=== PATIENT | male | born 1945 | race Caucasian/White ===

== ENCOUNTER 2018-11-01 15:55 | Observation (INO) | payer MEDICARE, BC ==
--- NOTE | 2018-11-01 16:28 | ED ---
Palpitations / Dysrhythmia - HPI Summary HPI Summary: A 73 y/o M presents to ED with increased HR onset SQL DBA. Pt was at cardio-rehab at [facility], and had been on the treadmill for about 10 minutes. He went to another machine, and the provider monitoring him felt his BP was fine but his HR was not coming down as it should. They contacted Dr. Edwards , cardio, office who recommended that he go to the ED. At bedside, the pt states feeling completely fine. He will be three weeks from CABG tomorrow, which was done at [facility]. He is on Lisinopril, Metoprolol, and 325mg aspirin. Denies dizziness, lightheadedness. Non-smoker. No recent changes in caffeine intake. - History of Current Complaint Chief Complaint: EDDysrhythmPalp Time Seen by Provider: 11/01/18 16:18 Hx Obtained From: Patient, Family/Account Auditor - Onset/Duration: Sudden Onset, Still Present Timing: Constant Severity Initially: Moderate Severity Currently: Moderate Character: Fast - HR Aggravating: Exertion Associated Signs & Symptoms: Negative - Allergy/Home Medications Allergies/Adverse Reactions: Allergies Allergy/AdvReac Type Severity Reaction Status Date / Time No Known Allergies Allergy Verified 03/13/13 07:14 Home Medications: Home Medications Aspirin TAB* [Aspirin 325 MG TAB*] 325 mg PO DAILY 11/01/18 [History Confirmed 11/01/18] Atorvastatin* [Lipitor*] 20 mg PO DAILY 11/01/18 [History Confirmed 11/01/18] Cholecalciferol CAP/TAB(NF) [Vitamin D3 CAP/TAB (NF)] 2,000 unit PO DAILY [History Confirmed 11/01/18] Glucosamine/MSM/Chondroitin A [Glucosamine Chondroitin &] 1 tab PO BID 11/01/18 [History Confirmed 11/01/18] Insulin NPH Hum/Reg Insulin Hm [Novolin 70-30 Flexpen] 26 - 46 units SUBCUT ACHS 11/01/18 [History Confirmed 11/01/18] Lisinopril TAB* [Prinivil TAB*] 5 mg PO DAILY 11/01/18 [History Confirmed ] Metoprolol Tartrate TAB* [Lopressor TAB*] 12.5 mg PO BID 11/01/18 [History Confirmed 11/01/18] [place]-3 Fatty Acids (Nf) [Fish Oil (NF)] 1,000 mg PO DAILY 11/01/18 [History Confirmed 11/01/18] PMH/Surg Hx/FS Hx/Imm Hx Previously Healthy: No Endocrine/Hematology History: Reports: Hx Diabetes - TYPE 2 Cardiovascular History: Denies: Other Cardiovascular Problems/Disorders History: Denies: Other Problems/Disorders Musculoskeletal History: Reports: Hx Arthritis - HIP Denies: Other Musculoskeletal History Sensory History: Reports: Hx Cataracts, Hx Contacts or Glasses - GLASSES Denies: Hx Hearing Aid Opthamlomology History: Reports: Hx Cataracts, Hx Contacts or Glasses - GLASSES Neurological History: Denies: Other Neuro Impairments/Disorders - Surgical History Surgery Procedure, Year, and Place: 02/2010, RIGHT HIP REPLACEMENT, [place]. 1995, LEFT KNEE ARTHROSCOPY, [facility]. DEVIATED SEPTUM , , [facility] Hx Anesthesia Reactions: No Infectious Disease History: No Infectious Disease History: Denies: Traveled Outside the [place] in Last 30 Days - Family History Family History: neg: anaesthesia reaction. - Social History Occupation: Employed Full-time Lives: With Family Substance Use Type: Reports: None Review of Systems Negative: Fever, Chills Negative: Erythema Negative: Sore Throat Positive: Palpitations - rapid HR. Negative: Chest Pain Negative: Shortness Of Breath, Cough Negative: Abdominal Pain, Vomiting, Nausea Negative: dysuria, hematuria Negative: Myalgia, Edema Negative: Rash Neurological: Other - neg: dizziness, lightheadedness All Other Systems Reviewed And Are Negative: Yes Physical Exam - Summary Physical Exam Summary: Constitutional: Well-developed, Well-nourished, Alert. (-) Distressed Skin: Warm, Dry HENT: Normocephalic; Atraumatic Eyes: Conjunctiva normal Neck: Musculoskeletal ROM normal neck. (-) JVD, (-) Stridor, (-) Tracheal deviation Cardio: Rapid irregularly irregular heart beat; Heart sounds normal; Intact distal pulses; The pedal pulses are 2+ and symmetric. Radial pulses are 2+ and symmetric. (-) Murmur Pulmonary/Chest wall: Effort normal. (-) Respiratory distress, (-) Wheezes, (-) Rales Abd: Soft, (-) epigastric tenderness, (-) Distension, (-) Guarding, (-) Rebound Musculoskeletal: (-) Edema Lymph: (-) Cervical adenopathy Neuro: Alert, Oriented x3 Psych: Mood and affect Normal Triage Information Reviewed: Yes Vital Signs On Initial Exam: Initial Vitals Temp Pulse Resp BP Pulse Ox 98.4 F 130 18 114/96 97 11/01/18 16:05 11/01/18 16:05 11/01/18 16:05 11/01/18 16:05 11/01/18 16:05 Vital Signs Reviewed: Yes Diagnostics - Vital Signs Vital Signs Temp Pulse Resp BP Pulse Ox 11/01/18 16:05 98.4 F 130 18 114/96 97 - Laboratory Result Diagrams: 11/01/18 16:30 11/01/18 16:30 Lab Statement: Any lab studies that have been ordered have been reviewed, and results considered in the medical decision making process. - Radiology CXR Radiology Interpretation Completed By: Radiologist Summary of Radiographic Findings: IMPRESSION: Atelectasis versus infiltrate at the left lung base. ED provider has reviewed this report. - EKG 1634 EKG Rhythm: Atrial Fibrillation - at 155 bpm Summary of EKG Findings: No STEMI. 1651 EKG Rhythm: Atrial Fibrillation - with RVR at 116 bpm Summary of EKG Findings: No STEMI Course/Dx - Course Course Of Treatment: Pt is a 73 y/o M presenting with increased HR onset SQL DBA. Pt was at cardio-rehab, and had been on the treadmill for about 10 minutes. The provider monitoring him felt his BP was fine but his HR was not coming down as it should. They contacted Dr. Edwards, cardiology, who recommended that he go to the ED. At bedside, the pt states feeling completely fine. He will be three weeks from CABG tomorrow, which was done at [facility]. He is on Lisinopril, Metoprolol, and 325mg aspirin. Denies dizziness, lightheadedness. Non-smoker. No recent changes in caffeine intake. Critical lab value: troponin 0.04. Consulted with Dr. Carmona, hospitalist, who will admit patient. - Diagnoses Provider Diagnoses: Atrial fibrillation with RVR - Physician Notifications Discussed Care Of Patient With: Ashley Carmona - hospitalist Time Discussed With Above Provider: 17:55 Instructed by Provider To: Admit As Inpatient - Critical Care Time Critical Care Time: 30-74 min - 35 mins CC time Discharge - Sign-Out/Discharge Documenting (check all that apply): Patient Departure - ADMIT Patient Received Moderate/Deep Sedation with Procedure: No - Discharge Plan Condition: Stable Disposition: ADMITTED TO [facility] Referrals: Mirza Purcell MD [Primary Care Provider] - - Attestation Statements Document Initiated by Scribe: Yes Documenting Scribe: Brianna Elliott Provider For Whom Scribe is Documenting (Include Credential): Dr. Dipak Forte MD Scribe Attestation: Violetta, Brianna Elliott, scribed for Dr. Dipak Forte MD on 11/01/18 at 1839. Status of Scribe Document: Ready
[2018-11-01] MEDS: Diltiazem IV* 5 MG/ML 5 ML VIAL (for loading dose/IV Push) (25 MG) IV SLOW PU ONE ×2 (16:46→16:54)
[2018-11-01 16:50] LABS: ABS Basophils 0.1 10^3/ul (0-0.2); ABS Eosinophils 0.4 10^3/ul (0-0.6); ABS Lymphocytes 1.8 10^3/ul (1.0-4.8); ABS Monocytes 0.6 10^3/ul (0-0.8); ABS Neutrophils 4.2 10^3/ul (1.5-7.7); ABS Nucleated RBC 0 10^3/ul; Eosinophil % 5.9 %; Hematocrit 36 % (42-52); Hemoglobin 11.7 g/dl (14.0-18.0); Mean Corpuscular HGB Conc 33 g/dl (31-36); Mean Corpuscular Hemoglobin 30 pg (27-31); Mean Corpuscular Volume 92 fL (80-94); Mean Platelet Volume 7.3 fL (7.4-10.4); Nucleated Red Blood Cells % 0.1; Platelet Count 289 10^3/ul (150-450); Red Blood Count 3.88 10^6/ul (4.00-5.40); Red Cell Distribution Width 14 % (10.5-15); White Blood Count 7.2 10^3/ul (3.5-10.8)
[2018-11-01 17:06] LABS: ALT 39 U/L (7-52); Albumin 3.8 g/dL (3.2-5.2); Alkaline Phosphatase 101 U/L (34-104); BUN/Creatinine Ratio 21.3 (8-20); Blood Urea Nitrogen 16 mg/dL (6-24); CO2 Carbon Dioxide 27 mmol/L (22-32); Calcium 9.2 mg/dL (8.6-10.3); Chloride 104 mmol/L (101-111); EGFR African American 123.2 (>60); EGFR Non-African American 101.8 (>60); Globulin 3.9 g/dL (2-4); Glucose 74 mg/dL (70-100); Sodium 136 mmol/L (135-145); Total Protein 7.7 g/dL (6.4-8.9)
[2018-11-01 17:10] LABS: Troponin I 0.04 ng/mL (<0.04)
[2018-11-01] MEDS ORDERED: Diltiazem TAB* 30 MG PO ONE (17:18)
[2018-11-01] MEDS ORDERED: Diltiazem TAB* 30 MG ONE (17:21)
[2018-11-01 17:44] LABS: Anion Gap 5 mmol/L (2-11)
[2018-11-01] MEDS ORDERED: Diltiazem IV VIAL* 125 MG in NS 0.9% 100 ML* 100 ML IVPB ONE (17:56)
[2018-11-01] MEDS ORDERED: NS 0.9% 100 ML* 100 ML ONE (18:15)
[2018-11-01] MEDS ORDERED: Acetaminophen TAB* 325 MG PO PRN (19:42)
[2018-11-01 19:52] LABS: Magnesium 2.1 mg/dL (1.9-2.7); Potassium Redraw 4.7 mmol/L (3.5-5.0)
[2018-11-01] MEDS ORDERED: Dextrose 50% Syringe 50 ML* 25 GM/50 ML SYRINGE IV PUSH PRN (20:18)
[2018-11-01] MEDS ORDERED: Metoprolol Tartrate TAB* 25 MG ONE (20:25)
[2018-11-01] MEDS: Metoprolol Tartrate TAB* 25 MG PO SCH (20:30)
[2018-11-01] MEDS ORDERED: Metoprolol Tartrate TAB* 25 MG PO SCH (21:00)
[2018-11-01] MEDS: Apixaban* 5 MG TAB PO SCH (22:40)
[2018-11-01] MEDS: Insulin LISPRO* 1 UNITS UNIT SUBCUT SCH (23:35)
--- NOTE | 2018-11-02 01:12 | HP ---
CC: Dr. Edwards; Dr. Purcell * HISTORY AND PHYSICAL: DATE OF ADMISSION: 11/01/18 PROVIDER: Isael Preciado NP PRIMARY CARE PROVIDER: Dr. Purcell. ATTENDING PHYSICIAN WHILE IN THE HOSPITAL: Dr. Taylor Armendariz * (dictated by Isael Preciado NP). CHIEF COMPLAINT: Tachycardia. HISTORY OF PRESENT ILLNESS: Mr. Gordon is a 73-year-old male with a past medical history significant for diabetes, recent aortic valve replacement and aortic aneurysm repair, who was at cardiac rehab today doing his exercise when staff noticed that he had a high heart rate, and after rest, the heart rate did not come down, so they sent him to the emergency room for further evaluation. The patient denied any chest pain; he denied any feelings of palpitation; he denied any nausea, vomiting, or diarrhea. Denies any recent illness. Denies any cough or hemoptysis. He did report that he was mildly short of breath with exercise. Denied any dizziness, dysphagia, arthralgias, myalgias. Denied any rashes. He does have a healing surgical incision to his sternum. Denies any psychosis or anxiety. While in the emergency room, the patient was found to be in rapid atrial fibrillation at a rate of 130 to 150. He was given Cardizem IV in the emergency room x2 doses and then started on a Cardizem drip at 5 mg. He also received Cardizem 90 mg p.o. Subsequently, the patient converted to sinus rhythm on the monitor and repeat EKG was done, which confirmed sinus rhythm. The patient had routine lab work drawn which showed a mild elevation in his troponin at 0.04 x2. His magnesium was 2.1, potassium was 4.7. His hemoglobin was 11.7, hematocrit was 36. The patient's white count was 7.2. Given the new onset of atrial fibrillation, we were asked to see and evaluate for admission. PAST MEDICAL HISTORY: Significant for: 1. Diabetes. 2. Aortic valve replacement on 10/12/18. 3. Aortic aneurysm repair on 10/12/18. PAST SURGICAL HISTORY: 1. Right hip replacement. 2. Aortic valve replacement, bovine cow valve on 10/12/18 at [place], [place]. 3. Aortic aneurysm repair, 10/12/18, in [place], [place]. 4. Cataract surgery. 5. Deviated septum repair. HOME MEDICATIONS: 1. Aspirin 325 mg p.o. daily. 2. Atorvastatin 20 mg p.o. daily. 3. Vitamin D3 2000 units p.o. daily. 4. Glucosamine 1 tab p.o. b.i.d. 5. 70/30, 26 to 46 units subcu a.c. and h.s. 6. Metoprolol 12.5 mg p.o. b.i.d. 7. [place]-3 fatty acid 1000 mg p.o. daily. 8. Lisinopril 5 mg p.o. daily. ALLERGIES: No known drug allergies. FAMILY HISTORY: Grandmother with a history of an IA. Grandmother with a history of diabetes. Mother with a history of skin cancer. SOCIAL HISTORY: Denies any tobacco, alcohol, or illicit drug use. Semiretired. He currently works at the [employer]. He is . Surrogate decision maker in the event he is unable to make his own decisions is his . He is a full code. REVIEW OF SYSTEMS: There was no documented fever. No unintended weight loss, chest pain, or edema. Denies any cough, hemoptysis. He did report some mild shortness of breath with exercise. Denies any nausea, vomiting, diarrhea, abdominal pain, hematuria, dysuria, focal weakness, sensory loss, dysphagia, arthralgias, myalgias, rashes. He does have a healing surgical incision to his sternum that is well approximated. No pain, drainage, or redness. No psychosis or anxiety. PHYSICAL EXAMINATION GENERAL: At this time, Mr. Gordon is a 73-year-old male. He is resting comfortably on the stretcher in the emergency room. He is well nourished, well developed, in no acute distress. HEENT: Head is atraumatic, normocephalic. Eyes: EOMs are intact. Sclerae anicteric and not pale. Oral mucosa appeared to be moist. NECK: Supple. LUNGS: Clear to auscultation bilaterally. No wheezes, rales, or rhonchi. CARDIAC: S1, S2. Irregular rate and rhythm. No murmurs, rubs, or gallops. Midsternal chest incision is well approximated, healing. There is no redness or drainage. There are some small scabbed areas. ABDOMEN: Soft and nontender. Bowel sounds are present x4. EXTREMITIES: Pedal pulses are +2 bilaterally. He is able to move all 4 extremities with 5/5 strength. NEUROLOGIC: He is awake, alert, oriented x3. Speech is clear. Thought process is intact. No gross focal deficits are noted. SKIN: He has a healing surgical scar noted to his sternum that is well approximated without redness or drainage. PSYCH: He is pleasant, alert, and oriented x3. LABORATORY DATA AND DIAGNOSTIC STUDIES: WBCs are 7.2, RBCs 3.88, hemoglobin 11.7, hematocrit was 36, platelet count 289. Sodium 136, potassium 4.7, chloride 104, and carbon dioxide was 27. Anion gap was 5. BUN 16, creatinine 0.75. Glucose 74. Lactic acid 1.7. Calcium 9.2. Magnesium 2.1. Total bilirubin was 0.50. ASTs were 22, ALTs were 39, alkaline phosphatase was 101. Troponin was 0.04 x2. He had a chest x-ray, radiologist's impression: Atelectasis versus infiltrates in the left lung base. Initial electrocardiogram showed atrial fibrillation at a rate of 155. Last echocardiogram showed sinus rhythm at a rate of 95 with PACs. ASSESSMENT AND PLAN: Mr. Gordon is a 73-year-old male who presented to the emergency room from cardiac rehab for tachycardia. He was found to be in atrial fibrillation. Due to new-onset atrial fibrillation, we were asked to see and evaluate him for admission. He will be admitted under observation for: 1. New-onset atrial fibrillation. CHADS-VASc 2 score for atrial fibrillation. Stroke risk is 3, giving him a 3.2% per year in greater than 90,000 patients and a 4.6% risk of stroke, TIA, or systemic embolism. This is a moderate high risk and recommendation should be anticoagulation. His HAS-BLED score is 3, giving him a 5.8% risk in one validation study and 3.72 bleeds per 100 patients in a year. I did discuss the case with Dr. Gutierrez from Cardiology who recommended the patient be placed on anticoagulation and agreed that Eliquis would be appropriate medication for his anticoagulation. The patient will be placed on Eliquis 5 mg p.o. b.i.d. I will increase his metoprolol to 25 mg p.o. b.i.d. The patient is currently on a Cardizem drip. I will discontinue the Cardizem drip after one hour after the metoprolol. If the patient should have episode of tachycardia during the night, Dr. Gutierrez has recommended Cardizem CD 120 mg to assist with rate control. I did discuss the risk of bleeding with anticoagulation and gave options for Coumadin versus Eliquis and Xarelto. The patient has opted for Eliquis and will be started on that this evening. I will decrease his aspirin therapy to 81 mg from 325 as we are starting Eliquis to decrease the risk of bleeding. 2. Status post aortic valve replacement. The patient is without chest pain. We will continue to monitor. We will continue metoprolol and baby aspirin as previously prescribed. 3. Hyperlipidemia. We will continue on atorvastatin 20 mg p.o. daily. 4. Diabetes. I will do fingersticks a.c. and h.s. I will place him on Lispro sliding scale. 5. Elevated troponin. The patient has a troponin of 0.04 x2. I suspect that this elevation in his troponin is related to demand ischemia from the tachycardia. We will continue to monitor his troponin overnight and repeat an EKG in the a.m. 6. Fluids, electrolytes, nutrition. He can have a heart-healthy decaf-okay diet with consistent carbs. 7. Code status. He is a full code. 8. DVT prophylaxis. He will be on Eliquis. 9. Disposition: He will be placed on telemetry for observation. TIME SPENT: Time spent on this admission was 60 minutes, greater than half that time was spent at the bedside obtaining my history and physical; the other half of the time was spent going over my plan of care and implementing my plan of care. I have discussed this with my attending, Dr. Taylor Armendariz. She is in agreement with my plan. ISAEL PRECIADO, TESTER/LIFT TRUCKER [id number]/[facility] #: [id number] HENRRY
[2018-11-02] MEDS ORDERED: Insulin LISPRO* 1 UNITS UNIT SUBCUT SCH (07:30)
--- NOTE | 2018-11-02 07:48 | CONSULT ---
Subjective Date of Service: 11/02/18 Interval History: Admission Date: 11/01/18 Consult date 11/02/2018 Provider: Hospitalist PMD: Dr. Purcell It Help Desk Associate: Dr. Petr Pan Cardiac surgeon: Dr. Theodore CC: Abdomen vibrations, rapid atrial fibrillation discovered at cardiac rehab Reason for consult: Post-cardiac surgery atrial fibrillation HISTORY OF PRESENT ILLNESS: Mr. Gordon is a 73-year-old man who had an uncomplicated bioprosthetic AVR and ascending aortic aneurysm replacement 2018 after presenting with multiple episodes of syncope. He has recovered well. He denies any edema, chest discomfort, back discomfort, dyspnea, bleeding , melena, presyncope, syncope, fevers, or wound drainage. He has had occasional episodes of abdomen vibrations since surgery that have been self limited. He had the episode yesterday and found with rapid AFib and send to [facility] and admitted. He was given rate control medication and converted to sinus rhythm. He is now asymptomatic. PAST MEDICAL hx 1. Diabetes. 2. #27 magna pericardial bioprosthetic aortic valve replacement and TAA repair with #34 graft on 10/12/18. 3. HTN PAST SURGICAL HISTORY: 1. Right hip replacement. 2. cardiac surgery as above 3. Cataract surgery. 4. Deviated septum repair. HOME MEDICATIONS: 1. Aspirin 325 mg p.o. daily. 2. Atorvastatin 20 mg p.o. daily. 3. Vitamin D3 2000 units p.o. daily. 4. Glucosamine 1 tab p.o. b.i.d. 5. 70/30, 26 to 46 units subcu a.c. and h.s. 6. Metoprolol 12.5 mg p.o. b.i.d. 7. [place]-3 fatty acid 1000 mg p.o. daily. 8. Lisinopril 5 mg p.o. daily. ALLERGIES: No known drug allergies. FAMILY HISTORY: Grandmother with a history of an ND. Grandmother with a history of diabetes. Mother with a history of skin cancer. SOCIAL HISTORY: Denies any tobacco, alcohol, or illicit drug use. Semiretired. He currently works at the [employer]. He is . Surrogate decision maker in the event he is unable to make his own decisions is his . He is a full code. Medications Active Medications: Acetaminophen (Tylenol Tab*) 650 mg PO Q4H PRN PRN Reason: FEVER/PAIN Amiodarone HCl (Cordarone Tab*) 400 mg PO 0900 [facility] Apixaban (Eliquis*) 5 mg PO BID [facility] Last Admin: 11/01/18 22:40 Dose: 5 mg Atorvastatin Calcium (Lipitor*) 20 mg PO DAILY [facility] Dextrose (D50w Syringe 50 Ml*) 12.5 gm IV PUSH .FOR FS < 60 - SS PRN PRN Reason: FS < 60 Insulin Human Lispro (Humalog*) 0 units SUBCUT [facility]; Protocol Last Admin: 11/01/18 23:35 Dose: 2 units Lisinopril (Prinivil Tab*) 5 mg PO DAILY [facility] Metoprolol Tartrate (Lopressor Tab*) 25 mg PO BID [facility] Last Admin: 11/01/18 20:30 Dose: 25 mg Home Medications: Aspirin TAB* [Aspirin 325 MG TAB*] 325 mg PO DAILY 11/01/18 [History Confirmed 11/01/18] Atorvastatin* [Lipitor*] 20 mg PO DAILY 11/01/18 [History Confirmed 11/01/18] Cholecalciferol CAP/TAB(NF) [Vitamin D3 CAP/TAB (NF)] 2,000 unit PO DAILY [History Confirmed 11/01/18] Glucosamine/MSM/Chondroitin A [Glucosamine Chondroitin &] 1 tab PO BID 11/01/18 [History Confirmed 11/01/18] Insulin NPH Hum/Reg Insulin Hm [Novolin 70-30 Flexpen] 26 - 46 units SUBCUT [facility] 11/01/18 [History Confirmed 11/01/18] Lisinopril TAB* [Prinivil TAB*] 5 mg PO DAILY 11/01/18 [History Confirmed ] Metoprolol Tartrate TAB* [Lopressor TAB*] 12.5 mg PO BID 11/01/18 [History Confirmed 11/01/18] [place]-3 Fatty Acids (Nf) [Fish Oil (NF)] 1,000 mg PO DAILY 11/01/18 [History Confirmed 11/01/18] Review of Systems - Measurements Intake and Output: Intake and Output Last 24 Hours 10/31/18 11/01/18 11/02/18 11/03/18 06:59 06:59 06:59 06:59 Intake Total 20 Balance 20 Weight 206 lb Intake: IV Fluids 20 Oral 0 - Review of Systems Constitutional Symptoms: Negative: Weakness, Fatigue, Fever, Night Sweats Dermatology: Negative: Rash, Skin Lesions HEENT: Negative: Change in Hearing, Vertigo Eyes: Negative: Change in Vision, Double Vision Thyroid: Positive: Palpitations Negative: Cold Intolerance, Heat Intolerance Pulmonary: Negative: Cough, Sputum, Hemoptysis, Wheezing, Respiratory Distress, Shortness of Breath, Exercise Intolerance Cardiology: Positive: Palpitations Negative: Chest Pain, Shortness of Breath, Swelling of Ankles, Peripheral Vascular Dis, Edema, Faintness, Syncope, Claudication, Paroxysmal Nocturnal Dyspnea, Orthopnea Gastroenterology: Negative: Abdominal Pain, Nausea, Vomiting, Anorexia, Indigestion, Difficulty Swallowing, Heartburn, Constipation, Diarrhea, Blood in Stools, Change in Bowel Habits, Haematemesis, Melena Genital - Urinary: Negative: Dysuria, Hematuria, Polyuria Musculoskeletal: Negative: Joint Pain, Joint Stiffness, Osteoporosis, Low Back Pain Endocrinology: Positive: Diabetes Negative: Thyroid Problems, Polydipsia, Polyuria Hematologic/Lymphatic: Positive: Use of Antiplatelet Drugs Negative: Hx Leukemia, Hx Lymphoma, Use of Anticoagulant Neurology: Negative: Headaches, Migraines, Change in Vision, Diplopia, Dizziness, Change in Balancing, Change in Coordination, Change in Memory, Change in Speech , Change in Sphincter Function, Change in Walking, Unexplained Weakness, Hx of Stroke\TIA, Hx Seizures Psychiatry: Negative: Unusual Anxiety, Suicidal Ideation Allergic/Immunologic: Negative: Hx HIV, Immunocompromise Review of Systems Statement: All other review of systems negative, unless stated above. Objective Vital Signs: Temp Pulse Resp BP Pulse Ox 98.1 F 81 16 114/69 98 11/02/18 03:10 11/02/18 03:10 11/02/18 03:10 11/02/18 03:10 11/02/18 03:10 Oxygen Devices in Use Now: None Appearance: nad, very pleasant Ears/Nose/Mouth/Throat: Clear Oropharnyx, Mucous Membranes Moist Neck: NL Appearance and Movements; NL JVP, Trachea Midline Respiratory: Symmetrical Chest Expansion and Respiratory Effort, - - mild crackles left base Cardiovascular: No Edema, - - RRR, no significant murmur noted, sternotomy site nearly healed no signs of infection Abdominal: NL Sounds; No Tenderness; No Distention Extremities: No Edema Skin: No Rash or Ulcers Neurological: Alert and Oriented x 3 Laboratory Results: 11/01/18 16:30 Total Bilirubin 0.50 mg/dL (0.2-1.0) 11/01/18 16:30 AST 22 U/L (13-39) 11/01/18 19:28 ALT 39 U/L (7-52) 11/01/18 16:30 Alkaline Phosphatase 101 U/L (34-104) 11/01/18 16:30 Total Protein 7.7 g/dL (6.4-8.9) 11/01/18 16:30 Albumin 3.8 g/dL (3.2-5.2) 11/01/18 16:30 Globulin 3.9 g/dL (2-4) 11/01/18 16:30 Albumin/Globulin Ratio 1.0 (1-3) 11/01/18 16:30 11/01/18 11/01/18 11/01/18 16:30 19:28 22:16 Troponin I 0.04 H* 0.04 H* 0.04 H* Sodium 136, potassium 4.7, chloride 104, and carbon dioxide was 27. Anion gap was 5. BUN 16, creatinine 0.75. Glucose 74. Lactic acid 1.7. Calcium 9.2. Magnesium 2.1. tsh 1.2 He had a chest x-ray, radiologist's impression: Atelectasis versus infiltrates in the left lung base. Diagnostic Imaging: Preop echo LVEF 65-70%, ? bicuspid vs. tricuspid valve, LVEF 65-70%, severe with mean gradient 67 mmHg, mild-mod AI Pre-op coronary angiogram: No significant obstructive CAD Pre-op CT scan: 52 mm ascending aorta echo 11/02/2018 The left ventricular chamber size is normal. Moderate concentric left ventricular hypertrophy is observed. Global left ventricular wall motion and contractility are within normal limits. There is normal left ventricular systolic function. The estimated ejection fraction is 55-60%. Ventricular septal wall motion has a post-operative appearance. The left atrium is mildly dilated. The right ventricular cavity size is normal. The right ventricular global systolic function is mildly reduced. A bovine bio-prosthetic (#27 magna) aortic valve is present that is functioning normally. Ascending aortic graft repair appears normal There is a small thickened circumferential pericardial effusion without any evidence of hemodynamic significance. Definity was used to optimize study. EKG Data: EKG 1: Rapid afib rate 155 bpm, EKG 2: AFib rate 116 bpm EKG 3: artifact, ivcd, NSR, pac's Telemetry: NSR Assessment/Plan 1. Minimally symptomatic post-operative rapid paroxysmal atrial fibrillation - Now in SR spontaneous conversion 2. s/p bioprosthetic AVR/TAA repair 10/12/2018 - Echo today shows normal LV function and normal valve function/aortic repair 3. DM 4. HTN - d/c aspirin (ordered) - start eliquis 5 mg po bid for now (I think regular dose NOAC this far post- CABG is reasonable instead of warfarin and this was discussed). He does have a small pericardial effusion of thickened fluids and has a repeat echocardiogram planned per his account on 11/08/2018 and this will be re-evaluated after starting anticoagulation - Increase home metoprolol from 12.5 to 25 mg po bid - Start amiodarone 400 mg po daily for a 1 week then 200 mg po daily for duration to be determined by patients film flat inspector/cardiac surgeon - Can continue other cardiac medications and patient can be discharged from a cardiac standpoint Thank you for allowing me to participate in the cardiovascular care of this patient. Please do not hesitate to contact me with questions or concerns.
[2018-11-02] MEDS ORDERED: Amiodarone TAB* 400 MG PO SCH (08:00)
[2018-11-02] MEDS: Insulin LISPRO* 1 UNITS UNIT SUBCUT SCH ×2 (08:07→13:21)
[2018-11-02] MEDS ORDERED: Atorvastatin* 20 MG TAB PO SCH (09:00)
[2018-11-02] MEDS ORDERED: Aspirin TAB* 325 MG PO SCH (09:00)
[2018-11-02] MEDS ORDERED: Aspirin EC TAB* 81 MG TAB.EC PO SCH (09:00)
[2018-11-02] MEDS ORDERED: Lisinopril TAB* 5 MG PO SCH (09:00)
[2018-11-02] MEDS: Metoprolol Tartrate TAB* 25 MG PO SCH (09:06)
[2018-11-02] MEDS: Apixaban* 5 MG TAB PO SCH (09:06)
[2018-11-02] MEDS ORDERED: Perflutren Lipid Microsphere* 3 ML VIAL ONE (12:43)
--- NOTE | 2018-11-02 14:41 | ECHO ---
Patient: INDIGO RUBIO [facility] Rec#: [id number] : 1945 Date: 11/02/2018 Age: 73y Height: 183 cm / 72.0 in Weight: 93.4 kg / 205.9 lbs Sex: M BSA: 2.2 Room#: [facility] Admit Date#: 11/01/2018 Type: Inpatient Referring: Mika Ortega DO Reading: Mika Ortega DO Creative Writing Teacher: Sonia Moody RN RDCS CC: Mirza Purcell MD Transthoracic Echocardiogram Indication: Abnormal EKG, A. fib BP: 114/69 HR: 80 Rhythm: NSR with PACs Findings History: DM, recent bovine AVR and aortic aneurysm repair 10/12/2018. Technical Comments: The study is technically limited due to poor acoustic windows. Completed at 1350. Left Ventricle: The left ventricular chamber size is normal. Moderate concentric left ventricular hypertrophy is observed. Global left ventricular wall motion and contractility are within normal limits. There is normal left ventricular systolic function. The estimated ejection fraction is 55-60%. Ventricular septal wall motion has a post-operative appearance. Abnormal left ventricular diastolic function is observed. Left Atrium: The left atrium is mildly dilated. Right Ventricle: The right ventricular cavity size is normal. The right ventricular global systolic function is mildly reduced. Right Atrium: The right atrium is mildly dilated. Aortic Valve: There is a trace of aortic regurgitation. A bovine bio-prosthetic aortic valve is present. The bio-prosthetic aortic valve appears to be functioning normally. Mitral Valve: The mitral valve leaflets are mildly thickened. There is no evidence of mitral regurgitation. There is no evidence of mitral stenosis. Tricuspid Valve: The tricuspid valve leaflets are normal. There is trace tricuspid regurgitation. Unable to estimate the right ventricular systolic pressure. There is no tricuspid stenosis. Pulmonic Valve: The pulmonic valve structure is not well visualized. There is no evidence of pulmonic regurgitation. There is no pulmonic stenosis. Pericardium: There is a small pericardial effusion. There are no signs of significant hemodynamic compromise. There is a circumferential pericardial effusion. Aorta: There is no dilatation of the aortic arch. There is no dilation of the aortic root. Pulmonary Artery: The main pulmonary artery is not well visualized. Venous: The inferior vena cava is dilated. There is less than 50% respiratory change in the inferior vena cava dimension. Contrast: Definity was used to optimize study. A total of 3 ml of diluted Definity was given IV. Conclusions The left ventricular chamber size is normal. Moderate concentric left ventricular hypertrophy is observed. Global left ventricular wall motion and contractility are within normal limits. There is normal left ventricular systolic function. The estimated ejection fraction is 55-60%. Ventricular septal wall motion has a post-operative appearance. The left atrium is mildly dilated. The right ventricular cavity size is normal. The right ventricular global systolic function is mildly reduced. A bovine bio-prosthetic (#27 magna) aortic valve is present that is functioning normally. Ascending aortic graft repair appears normal There is a small thickened circumferential pericardial effusion without any evidence of hemodynamic significance. Definity was used to optimize study. No post-operative echo reports available for comparison at time of interpretation Measurements Name Value Normal Range RVIDd (AP) 2D 2.6 cm (0.9 - 2.6) RVDdMajor (2D) 4 cm (2.2 - 4.4) RAd ISD 4CH 5.7 cm (3.4 - 4.9) RA (A4C)W 4.2 cm (2.9 - 4.6) IVSd (2D) 1.5 cm (0.6 - 1) LVPWd (2D) 1.4 cm (0.6 - 1) LVIDd (2D) 4.7 cm (3.6 - 5.4) LVIDs (2D) 3.8 cm - LV FS (2D) 19 % (25 - 45) Aortic Annulus 2.4 cm (1.4 - 2.6) Ao root diameter (2D) 3.3 cm (2.1 - 3.5) Ascending Ao 3.5 cm (2.1 - 3.4) Aortic arch 3.2 cm (1.8 - 3.4) LA dimension (AP) 2D 3.6 cm (2.3 - 3.8) LAd ISD 4CH 5.9 cm (2.9 - 5.3) LA ISD 4CH W 5.2 cm (2.5 - 4.5) Name Value Normal Range MV E-wave Vmax 0.99 m/sec - MV deceleration time 173 msec - MV A-wave Vmax 0.49 m/sec - LV septal e' Vmax 0.7 m/sec - LV lateral e' Vmax 0.7 m/sec - LV E:e' septal ratio 14.1 ratio - LV E:e' lateral ratio 14.1 ratio - Name Value Normal Range AV Vmax 1.6 m/sec - AV VTI 31.5 cm - AV peak gradient 10 mmHg - AV mean gradient 6 mmHg - LVOT diameter 2 cm - LVOT Vmax 0.79 m/sec - LVOT VTI 15 cm - LVOT peak gradient 3 mmHg - LVOT mean gradient 1 mmHg - DOI (VTI) 0.48 ratio - DOI (Vmax) 0.49 ratio - VIJAYA (continuity Vmax) 1.6 cm2 - VIJAYA (continuity VTI) 1.5 cm2 - COURTNEY Vmax 0.62 m/sec - Name Value Normal Range IVC diameter 2.5 cm - Name Value Normal Range PV mean gradient 0.6 mmHg -
[2018-11-02 16:19] VITALS: BP 106/73
--- NOTE | 2018-11-02 23:25 | DS ---
AMENDED REPORT NOW INCLUDES COSIGNER DESIGNATION CC: Dr. Purcell; Dr. Pan; Dr. Mika Ortega * DISCHARGE SUMMARY: DATE OF ADMISSION: 11/01/18 DATE OF DISCHARGE: 11/02/18 PRIMARY CARE PROVIDER: Dr. Purcell. MILL BEAM FITTER: Dr. Pan at [place]. MY ATTENDING FOR TODAY: Dr. Ashley Mcwilliams.* (DICTATED BY YESENIA CAMEJO NP) HOSPITAL COURSE: Please refer to the admitting H and P; however, in short, this is a 73-year-old male patient with a significant history of aortic valve disease, status post replacement and also repair of aortic aneurysm and diabetes. The patient was at cardiopulmonary rehab when he began to have some tachycardia. The patient's heart rate at that time was on the 130s to 150s range and irregular. The patient was sent to the emergency department for evaluation where he was found to be in atrial fibrillation with RVR. Heart rate again in the 150s and irregular. He was given Cardizem IV push x2 doses and then started on Cardizem drip at 5 mg per hour. He received oral Cardizem as well and subsequently converted to regular sinus rhythm. Repeat EKG confirmed he was in sinus. His troponins were negative at 0.04 x2. Electrolytes were within normal limits. He was admitted to observation status for evaluation of his AFib. He was seen by Dr. Mika Ortega of Cardiology. At that point, the patient because his VANESSA-VASc scores given his new onset AFib was a risk of 3, so the patient was started on Eliquis which he tolerated. His HAS-BLED score was also 3; however, discussing the benefits and risks of anticoagulation, the patient agreed to be anticoagulated. Recommendations from Dr. 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 The patient was cleared for discharge. REVIEW OF SYSTEMS ON DAY OF DISCHARGE: The patient had no complaints. A 10- point review of systems was negative. PHYSICAL EXAM: The patient is alert, well appearing, no acute distress. Vital signs are blood pressure 124/83, heart rate 87 and regular sinus rhythm, respiratory rate 16, O2 saturation 99% on room air with a temperature of 97.5. HEENT: The patient is atraumatic, normocephalic. PERRLA with nonicteric sclerae. Oral mucosa is moist. Tongue is midline. Neck is supple, nontender. No JVD noted. No carotid bruit auscultated. Cardiovascular: S1, S2 present. No murmurs, gallops, or rubs noted. Lungs are clear bilaterally to auscultation with no wheezing, rhonchi, or rales. Abdomen is soft, nontender, nondistended. Positive bowel sounds in all 4 quadrants. was deferred. Musculoskeletal: No clubbing, no cyanosis, no edema. +2 distal pulses palpable , full range of motion, steady gait. Neurologic: Grossly intact. No focal deficits. Psychiatric: Cooperative and appropriate. LABORATORY DATA: WBCs 7.2, RBCs 3.88, hemoglobin 11.7, hematocrit 36, platelets 289. Sodium 136, potassium 4.7, chloride 104, CO2 of 27, BUN 16, creatinine 0.75, GFR is 101.8, glucose 74, lactic acid 1.7, calcium 9.2, magnesium 2.1. Bilirubin 0.50, AST 22, ALT 39. Rae phos 101. Troponins were flat at 0.04 x3. Protein 7.7, albumin 3.8, globulin 3.9, TSH was 1.20. IMAGING: Echocardiogram of the heart showed EF of 55% to 60%, ventriculoseptal wall motion has a postoperative appearance, left atrium mildly dilated, right ventricular cavity size is normal, the right ventricular global systolic function is mildly reduced. A Bovine bioprosthetic #27 Magna aortic valve is present and functioning normally. Ascending aortic graft repair appears normal. There is a small thickened circumferential pericardial effusion without any evidence of hemodynamic significance. There was no postoperative echo reports available at the time of this exam. DISPOSITION: The patient was cleared for discharge to home. DIAGNOSES: 1. New onset atrial fibrillation. 2. Recent aortic valve replacement with bioprosthetic valve. 3. Aortic aneurysmal repair. 4. Diabetes. 5. History of osteoarthritis. DISCHARGE MEDICATIONS: Include: 1. Atorvastatin 20 mg p.o. daily. 2. Vitamin D3 2000 units p.o. daily. 3. Glucosamine 1 tab p.o. b.i.d. 4. Insulin 70/30, 26 to 46 subcu a.c. and h.s. 5. Metoprolol increased to 25 mg b.i.d. 6. Apixaban 5 mg p.o. b.i.d. 7. Amiodarone 400 mg p.o. daily x7 days and then 200 mg p.o. daily thereafter. 8. Lisinopril 5 mg p.o. daily. 9. Fish oil 1000 mg p.o. daily. FOLLOWUPS: The patient was instructed to follow up with Dr. 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 Purcell his primary care provider. The patient was discharged to home in stable condition. All questions were answered. The patient stated his understanding of his discharge instructions. New medications unchanged as are the medications at discharge. TIME SPENT: 35 minutes preparing discharge plan of care. YESNEIA CAMEJO NP [id number]/[facility] #: [id number] MTDDank
[2018-11-03] MEDS ORDERED: Amiodarone TAB* 200 MG PO SCH (09:00)
== END 2018-11-02 18:00 | disposition home or self-care (01) ==
LOC: ED 15:55 → MEDTELE 19:42
PROVIDERS: ADMIT Pediatrics; ATTEND Internal Medicine
DX: I48.91 Unspecified atrial fibrillation (principal); Z95.2 Presence of prosthetic heart valve; E11.9 Type 2 diabetes mellitus without complications; I10 Essential (primary) hypertension; M19.91 Primary osteoarthritis, unspecified site; Z79.4 Long term (current) use of insulin; Z86.79 Personal history of other diseases of the circulatory system; Z79.82 Long term (current) use of aspirin; R00.2 Palpitations
CPT/HCPCS: 36415; 71045; 80053; 83605; 83735; 84443; 84484; 85025; 93005; 93306; 96365; 96375; 99283; A9270-GY; C8929; G0378

== ENCOUNTER 2020-11-10 18:33 | Inpatient (IN) ==
[2020-11-10 19:50] LABS: ABS Lymphocytes 1.8 10^3/ul (1.0-4.8); ABS Monocytes 0.5 10^3/ul (0-0.8); ABS Neutrophils 7.8 10^3/ul (1.5-7.7); Hematocrit 28 % (42-52); Hemoglobin 9.4 g/dL (14.0-18.0); Lymphocyte % 17.7 %; Mean Corpuscular HGB Conc 34 g/dL (31-36); Mean Corpuscular Hemoglobin 34 pg (27-31); Mean Corpuscular Volume 101 fL (80-94); Mean Platelet Volume 8.5 fL (7.4-10.4); Platelet Count 135 10^3/uL (150-450); Red Blood Count 2.75 10^6 /uL (4.18-5.48); Red Cell Distribution Width 15 % (10-15); White Blood Count 10.1 10^3/uL (3.5-10.8)
[2020-11-10 20:00] LABS: INR 4.63 (0.82-1.09)
[2020-11-10 20:10] LABS: ALT 127 U/L (7-52); AST 98 U/L (13-39); Albumin 3.8 g/dL (3.2-5.2); Albumin/Globulin Ratio 1.2 (1-3); Alkaline Phosphatase 104 U/L (34-104); Anion Gap 11 mmol/L (2-11); BUN/Creatinine Ratio 26.2 (8-20); Blood Urea Nitrogen 79 mg/dL (6-24); C Reactive Protein 19.35 mg/L (<8.01); CO2 Carbon Dioxide 22 mmol/L (22-32); Calcium 9.1 mg/dL (8.6-10.3); Chloride 102 mmol/L (101-111); EGFR African American 24.6 (>60); EGFR Non-African American 20.4 (>60); Globulin 3.2 g/dL (2-4); Glucose 249 mg/dL (70-100); Potassium 5.2 mmol/L (3.5-5.0); Sodium 135 mmol/L (135-145)
[2020-11-10 20:15] LABS: Troponin I 0.57 ng/mL (<0.03)
[2020-11-10] MEDS ORDERED: Furosemide 40 mg/4 ml IV VIAL IV SLOW PU ONE (20:21)
[2020-11-10] MEDS ORDERED: Dextrose 50% Syringe 50 ml 25 GM/50 ML SYRINGE IV PUSH PRN (21:19)
[2020-11-10 21:57] LABS: Magnesium 2.1 mg/dL (1.9-2.7)
[2020-11-10] MEDS ORDERED: Bumetanide IV 0.25 MG/ML 4 ml VIAL (1 mg) SLOW PUSH ONE (23:15)
[2020-11-11 00:34] LABS: Troponin I 0.54 ng/mL (<0.03)
[2020-11-11 03:31] LABS: ABS Basophils 0.1 10^3/ul (0-0.2); ABS Lymphocytes 2.1 10^3/ul (1.0-4.8); ABS Monocytes 0.8 10^3/ul (0-0.8); Eosinophil % 0.2 %; Hematocrit 27 % (42-52); Lymphocyte % 21.4 %; Mean Corpuscular HGB Conc 34 g/dL (31-36); Mean Corpuscular Hemoglobin 34 pg (27-31); Mean Corpuscular Volume 101 fL (80-94); Mean Platelet Volume 8.4 fL (7.4-10.4); Platelet Count 121 10^3/uL (150-450); Red Blood Count 2.66 10^6 /uL (4.18-5.48); Red Cell Distribution Width 15 % (10-15)
[2020-11-11 03:50] LABS: ALT 221 U/L (7-52); AST 198 U/L (13-39); Albumin 3.7 g/dL (3.2-5.2); Albumin/Globulin Ratio 1.2 (1-3); Alkaline Phosphatase 98 U/L (34-104); Anion Gap 12 mmol/L (2-11); BUN/Creatinine Ratio 28.9 (8-20); Blood Urea Nitrogen 86 mg/dL (6-24); CO2 Carbon Dioxide 19 mmol/L (22-32); Chloride 106 mmol/L (101-111); EGFR African American 24.9 (>60); EGFR Non-African American 20.6 (>60); Glucose 114 mg/dL (70-100); Magnesium 2.1 mg/dL (1.9-2.7); Potassium 4.4 mmol/L (3.5-5.0); Sodium 137 mmol/L (135-145); Total Protein 6.7 g/dL (6.4-8.9)
[2020-11-11 03:58] LABS: Troponin I 0.61 ng/mL (<0.03)
[2020-11-11 04:04] LABS: INR 5.33 (0.82-1.09)
[2020-11-11 06:41] LABS: Troponin I 0.64 ng/mL (<0.03)
[2020-11-11 10:53] LABS: Troponin I 0.55 ng/mL (<0.03)
[2020-11-11] MEDS ORDERED: Phytonadione IV (Adult) 10 MG in NS 0.9% 50 ML 50 ML IV ONE (11:51)
[2020-11-11 12:14] VITALS: BP 127/43
== END 2020-11-11 14:10 | disposition short-term general hospital (02) | DRG 291 ==
LOC: MEDTELE 18:33 → ED 18:33
PROVIDERS: ADMIT Internal Medicine; ATTEND Internal Medicine